=== PATIENT | male | born 1990 | race Caucasian/White ===

== ENCOUNTER 2017-04-26 13:52 | Emergency (ER) | payer OTHER ==
[2017-04-26 13:59] VITALS: BP 123/84; PULSE 69; RESP 18; TEMP 97.7; O2SAT 97
--- NOTE | 2017-04-26 14:26 | EDPHY ---
General Narrative: CHIEF COMPLAINT: shoulder injury at work HISTORY OF PRESENT ILLNESS: Patient presents with complaints of left shoulder injury while at work. This occurred 2 hours ago. 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 He said the tool fell from the ceiling, approximately 14 ft and struck him on the left shoulder. He denies being struck in the head or anywhere else on his person. Sudden onset of pain, 10/10 in the area of injury. It is just medial to the shoulder over the distal clavicle. Able to move the hand, arm and wrist with no discomfort. Unable to move the shoulder without significant pain. No numbness or tingling. No headache. No neck pain. No chest or back pain. No shortness of breath. He was initially evaluated at an urgent care. X- ray performed was inconclusive, thus they sent him to our facility for higher level of care. No other associated complaints or modifying factors. REVIEW OF SYSTEMS: Ten systems reviewed and are negative unless otherwise noted in the HPI PCP: None SPECIALISTS: None PAST MEDICAL HISTORY: Denies any medical history PAST SURGICAL HISTORY: Denies any surgical history SOCIAL HISTORY: Daily smoker. No drug or alcohol use. FAMILY HISTORY: Noncontributory EXAMINATION General Appearance: Alert, no distress Head: normocephalic, atraumatic. No Ricci sign or outward signs of trauma. Eyes: Pupils equal and round, no conjunctival pallor or injection ENT, Mouth: Mucous membranes moist Neck: Supple nontender. No crepitus, step-off or deformity. Painless range of motion all planes. Respiratory: Lungs are clear to auscultation. No wheezing, rhonchi or crackles. Cardiovascular: Regular rate and rhythm. No murmur. Symmetric radial pulses 2+ Gastrointestinal: Abdomen is soft and nontender Back: non-tender, no bony abnormalities. No signs trauma Neurological: Cranial nerves 2-12 grossly intact. A&O, nonfocal, normal gait. Strength is symmetric in the upper extremities. Skin: Warm and dry, no rash. No petechiae or purpura. Superficial abrasion to the left AC joint. Extremities: Tenderness of the left AC and distal clavicle. No tenderness of the humeral head. No tenderness of the left scapula. Range of motion of the left shoulder is limited due to pain. Range of motion of the left hand, wrist and fingers fully intact. Psychiatric: Mood and affect normal DIFFERENTIAL DIAGNOSES: Including but not limited to clavicle fracture, AC sprain, shoulder fracture, dislocation MDM: 2:08 p.m. blunt trauma to the left shoulder/clavicle while at work. X-ray performed the outside still has been reviewed. There may be a buckle fracture of the clavicle. The lung forbes in view is unremarkable with no signs of pneumothorax. There is no dislocation or fracture of the humeral head. No obvious fracture of the scapula, and he has no pain over the scapular body. I do not feel he warrants any further studies at this time. I feel that he is stable for discharge home with a shoulder sling and follow up with his [facility] compensation [facility] for orthopedic follow-up. He may need MRI if his symptoms not improve. We discussed ED precautions for any worsening pain, neurovascular changes, shortness of breath or chest pain. He is comfortable this plan and discharged home stable condition. SUPERVISION: This patient was independently evaluated without direct involvement of or examination by the attending physician. - History Smoking Status: Current every day smoker - Objective Vital Signs: Initial Vital Signs Temperature (C) 97.7 F 04/26/17 13:54 Heart Rate 69 04/26/17 13:54 Respiratory Rate 18 04/26/17 13:54 Blood Pressure 123/84 H 04/26/17 13:54 O2 Sat (%) 97 04/26/17 13:54 O2 Delivery Mode Room Air Allergies/Adverse Reactions: No Known Allergies Allergy (Unverified 04/26/17 13:59) Home Medications: Medication Instructions Recorded oxyCODONE HCL/ACETAMINOPHEN 1 each PO Q4-6PRN PRN #11 tablet 04/26/17 [Percocet 5-325 mg Tablet] Departure - Departure Disposition: Home, Routine, Self-Care Clinical Impression: Clavicle pain Acromioclavicular sprain Qualifiers: Encounter type: initial encounter Laterality: left Qualified Code(s): S43.52XA - Sprain of left acromioclavicular joint, initial encounter Clavicle fracture Qualifiers: Encounter type: initial encounter Clavicle location: shaft Fracture type: closed Fracture alignment: nondisplaced Laterality: left Qualified Code(s): S42.025A - Nondisplaced fracture of shaft of left clavicle, initial encounter for closed fracture Condition: Good Instructions: Acromioclavicular Separation (ED), Clavicle Fracture (ED) Additional Instructions: 1. Shoulder sling for comfort as needed. Removed several times daily for range -of-motion exercises as demonstrated 2. Ice and elevation often 3. Ibuprofen 600 mg every 8 hr as needed 4. Pain medication as prescribed as needed 5. Follow up with worker's compensation [facility] and orthopedist for definitive care 6. ED precautions as discussed Referrals: Carlton Wu MD [Medical Doctor] - As per Instructions Stand Alone Forms: Work Limited Duty, Work Excuse Prescriptions: oxyCODONE HCL/ACETAMINOPHEN [Percocet 5-325 mg Tablet] 1 each PO Q4-6PRN PRN # 11 tablet PRN Reason: Pain, Breakthrough
== END 2017-04-26 14:36 | disposition home or self-care (01) ==
DX: S42.025A Nondisplaced fracture of shaft of left clavicle, initial encounter for closed fracture (principal); S43.52XA Sprain of left acromioclavicular joint, initial encounter; F17.200 Nicotine dependence, unspecified, uncomplicated; W13.2XXA Fall from, out of or through roof, initial encounter; Y92.69 Other specified industrial and construction area as the place of occurrence of the external cause; Y99.0 Civilian activity done for income or pay; Y93.89 Activity, other specified
CPT/HCPCS: A4565